=== PATIENT | female | born 1980 | race Asian ===

== ENCOUNTER 2017-04-05 19:08 | Emergency (ER) | payer OTHER ==
[~2017-04-05] VITALS: Ht 167.6 cm; Wt 60.6 kg
[2017-04-05 19:12] VITALS: TEMP 36.6; Ht 167.6 cm; Wt 60.6 kg
[2017-04-05] MEDS ORDERED: PROPARACAINE HCL 0.5% OP SOLN 15 ML BTL OP STA (19:20)
[2017-04-05] MEDS ORDERED: DIPHTHERIA/TETANUS/PERTUSSIS 0.5 ML SYR/VIAL IM. ONE (19:30)
[2017-04-05 19:56] VITALS: BP 126/77; PULSE 79; O2SAT 99
--- NOTE | 2017-04-05 21:39 | EMERGENCY ROOM VISIT NOTE ---
History First contact with patient: 19:20 Chief Complaint: EYE ASSESSMENT Stated Complaint: EYE ACCIDENT FOLLOWED BY VOMITING History of Present Illness The patient is a 36 year old female who presents to the Emergency Room with complaints of left eye discomfort after her daughter accidentally stuck her finger in her eye while playing. The patient noticed immediate swelling and redness of the eye. She did have one episode of vomiting. The believes that her last tetanus shot was over 20 years ago. The patient denies any persistent blurred vision. She denies headache or other pain about the eye. Review of Systems 10 system review was performed and was negative except for pertinent positives and negatives as indicated in history of present illness Past Medical/Surgical History Medical Problems: (1) No significant past medical history Surgical Problems: (1) No history of previous surgery Family History Unremarkable Social History Smoking Status: Never Smoker Alcohol Use: none Marital Status: Housing Status: lives with family Current/Historical Medications No Active Prescriptions or Reported Meds Physical Exam Vital Signs Date Time Temp Pulse Resp B/P (MAP) Pulse Ox O2 Delivery O2 Flow Rate FiO2 04/05/17 19:56 79 16 126/77 99 04/05/17 19:12 36.6 89 18 124/84 100 Room Air Right Eye Acuity: 20/25 Left Eye Acuity: 20/25 Affected Physical Exam CONSTITUTIONAL: Healthy and well nourished. Patient does not appear in any acute distress. HEENT: Normocephalic, atraumatic. Pupils equal, round and reactive. The patient has a inferolateral subconjunctival hemorrhage. No bloody drainage noted. EOMs intact without evidence for discomfort or entrapment. Visual field is intact. NECK: Full active range of motion without discomfort. INTEGUMENTARY: No rash or other significant dermatologic conditions noted. NEUROLOGIC: No focal neurologic deficits noted. Medical Decision & Procedures Medications Administered Medications (Trade) Dose Ordered Sig/Aracelis Route Start Time Stop Time Status Last Admin Dose Admin Diphtheria/ Pertussis/Tetanus Vacc (Adacel Inj) 0.5 ml ONCE ONCE IM. 04/05/17 19:30 04/05/17 19:31 DC 04/05/17 19:47 0.5 ML Procedure Slit lamp and fluorescein exam were performed. 2 drops of Alcaine were instilled into the eye. This did provide complete relief of the patient's discomfort. Slit lamp exam does not show any debris within the lower conjunctival sac. Negative hyphema. Fluorescein exam shows a small marginal corneal abrasion at 4:00, which is immediately adjacent to the subconjunctival hemorrhage. ED Course Patient history and physical exam were performed. Nurse's notes were reviewed. Vital signs were reviewed and were normal. The patient was administered Adacel IM. Slit lamp and fluorescein exam shows a small corneal abrasion with subconjunctival hemorrhage. Education was provided regarding healing a natural progression of these injuries. The patient was encouraged to intermittently apply ice to the eye fourth swelling and discomfort. Ibuprofen or Tylenol if needed for additional pain relief. The patient was provided contact information for ophthalmology should she have any worsening symptoms, demise in vision or other concerns. The patient was happy with plan of care, and denied any pain at the conclusion of my exam. Medical Decision Medication Reconcilliation Current Medication List: was personally reviewed by me Blood Pressure Screening Patient's blood pressure: Normal blood pressure Impression Primary Impression: Left corneal abrasion Additional Impression: Traumatic subconjunctival hemorrhage of left eye Departure Information Prescriptions No Active Prescriptions or Reported Meds Patient Instructions My [facility] Problem Qualifiers Primary Impression: Left corneal abrasion Encounter type: initial encounter Qualified Codes: S05.02XA - Injury of conjunctiva and corneal abrasion without foreign body, left eye, initial encounter
== END 2017-04-05 19:56 | disposition home or self-care (01) ==
LOC: C.EDB 19:12 → C.EDD 19:56
DX: S05.02XA Injury of conjunctiva and corneal abrasion without foreign body, left eye, initial encounter (principal); H11.32 Conjunctival hemorrhage, left eye; W50.0XXA Accidental hit or strike by another person, initial encounter; Z23 Encounter for immunization

== ENCOUNTER 2017-09-06 22:53 | Emergency (ER) | payer OTHER ==
[~2017-09-06] VITALS: Ht 157.5 cm; Wt 62.6 kg
[2017-09-06 22:58] VITALS: TEMP 36.5; Ht 157.5 cm; Wt 62.6 kg
[2017-09-06] MEDS ORDERED: KETOROLAC TROMETHAMINE 60 MG/2 ML VIAL IM STA (23:13)
[2017-09-06] MEDS ORDERED: OXYCODONE/ACETAMINOPHEN 5-325 TAB PO STA (23:13)
--- NOTE | 2017-09-06 23:15 | EMERGENCY ROOM VISIT NOTE ---
History Report prepared by Gwyn: Joy Medrano Under the Supervision of: Dr. Emilee Padron D.O. First contact with patient: 23:04 Chief Complaint: DENTAL PAIN Stated Complaint: TOOTH PAIN THAT SHOOTS TO EAR,EYE AND HEAD History of Present Illness The patient is a 37 year old female who presents to the Emergency Room with complaints of dental pain beginning 10 days coiler. She is accompanied by her who notes that 10 days ago, she went to [facility] to get fillings, but they "hit some healthy teeth." Since then, she has been in a lot of pain which radiates from the bottom of her teeth to her head. Her reports that she is going to go to an oral surgeon to have her tooth extracted. She denies any fevers or chills. The patient reports she was not put on antibiotics. Source of History: patient, spouse/significant other () Onset: 10 days coiler Position: teeth Quality: other (dental pain) Timing: other (after getting her teeth cleaned at [facility]) Review of Systems See HPI for pertinent positives & negatives. A total of 10 systems reviewed and were otherwise negative. Past Medical & Surgical Medical Problems: (1) No significant past medical history Surgical Problems: (1) No history of previous surgery Family History No pertinent family history Social History Smoking Status: Never Smoker Alcohol Use: none Marital Status: Housing Status: lives with family Current/Historical Medications No Active Prescriptions or Reported Meds Allergies Coded Allergies: No Known Allergies (Unverified , 09/06/17) Physical Exam Vital Signs Date Time Temp Pulse Resp B/P (MAP) Pulse Ox O2 Delivery O2 Flow Rate FiO2 09/07/17 00:26 82 18 122/72 99 09/06/17 22:58 36.5 63 18 120/77 100 Room Air Physical Exam HEENT: Head - normocephalic and atraumatic Pupils are equal, round, and reactive to light. Extraocular eye muscles are intact, and sclera are anicteric. Nose - moist nasal mucosa without discharge. Mouth - moist buccal mucosa. Oropharynx is nonerythematous and there is no tonsillar exudate or edema noted.On the 32nd tooth, there is no surrounding gingival erythema or edema. However, there is significant pain with palpation to the tooth. Neck: Supple; no JVD, nuchal rigidity, cervical lymphadenopathy Heart: Regular rate and rhythm. There is a normal S1 and S2 with no murmurs, clicks, or gallops appreciated. Lungs: Clear to auscultation bilaterally with no wheezes, rales, or rhonchi. Abdomen: Soft, completely nontender, nondistended, with good bowel sounds. There are no palpable pulsatile masses or hepatosplenomegaly. There is no guarding, rigidity, or rebound noted. Skin: warm and dry with good turgor and no rashes. Medical Decision & Procedures Medications Administered Medications (Trade) Dose Ordered Sig/Aracelis Route Start Time Stop Time Status Last Admin Dose Admin Ketorolac Tromethamine (Toradol Inj) 60 mg NOW STAT IM 09/06/17 23:13 09/06/17 23:14 DC 09/06/17 23:18 60 MG Oxycodone/ Acetaminophen (Percocet 5-325mg Tab) 1 tab NOW STAT PO 09/06/17 23:13 09/06/17 23:14 DC 09/06/17 23:19 1 TAB Procedure Oxycodone/Acetaminophen PO, Toradol Inj IM ED Course 2305: Past medical records reviewed. The patient was evaluated in room C3. A complete history and physical exam was performed. 2313: Ordered Oxycodone/Acetaminophen 1 tab PO, Toradol Inj 60 mg IM 0010: Upon reevaluation, the patient has complete relief of her symptoms. I discussed findings and results with her. She verbalized agreement of the treatment plan. She was discharged home. Medical Decision The patient is a 37 year old female who presents to the Emergency Room with complaints of dental pain beginning 10 days coiler. Differential diagnosis include dentalgia, abscess tooth, impacted tooth, or tic de larou as well as others were entertained. The patient was followed up at [facility]. They performed x-rays in their office. They referred her to an oral surgeon for tooth extraction. The patient has been using Advil at home for pain with no relief. She was given a dose of Toradol and Percocet here in the emergency department with significant relief of her symptoms. I have encouraged continued use of NSAIDs and will give her a Percocet home pack to use for more severe pain. There were no acute findings of infection. Therefore I will not prescribe antibiotics at this time. Medication Reconcilliation Current Medication List: was personally reviewed by me Blood Pressure Screening Patient's blood pressure: Normal blood pressure Blood pressure disposition: Did not require urgent referral Impression Primary Impression: Dentalgia Scribe Attestation The scribe's documentation has been prepared under my direction and personally reviewed by me in its entirety. I confirm that the note above accurately reflects all work, treatment, procedures, and medical decision making performed by me. Departure Information Dispostion Home / Self-Care Prescriptions No Active Prescriptions or Reported Meds Referrals No Doctor, Assigned (PCP) Forms HOME CARE DOCUMENTATION FORM, IMPORTANT VISIT INFORMATION Patient Instructions My [facility] Additional Instructions REst with your head elevated. Advil - 600mg every 6 hours with food for pain Percocet - 1 tab. every 4 hours for severe pain Follow up with Oral surgery
[2017-09-07] MEDS ORDERED: PERCOCET HOME PACK PO ONE (00:15)
[2017-09-07 00:26] VITALS: BP 122/72; PULSE 82; O2SAT 99
== END 2017-09-07 00:22 | disposition home or self-care (01) ==
LOC: C.EDB 22:55 → C.EDC 09-07 00:22
DX: K08.89 Other specified disorders of teeth and supporting structures (principal)